=== PATIENT | male | born 1955 | race Caucasian/White ===

== ENCOUNTER 2023-11-04 08:27 | Inpatient (IN) | payer BC, MEDICARE ==
[2023-11-04 09:19] LABS: #Eosinphils 0.1 thou/uL (0.0-0.7); #Monocytes 0.5 thou/uL (0.11-0.59); #Neutrophils 5.6 thou/uL (1.40-6.50); %Basophils 0.3 % (0.0-1.0); %Eosinophils 1.4 % (0.0-10.0); %Monocytes 6.7 % (0.0-10.0); %Neutrophils 77.2 % (42.0-75.0); Hematocrit 34.5 % (42.0-52.0); Hemoglobin 12.1 g/dL (14.0-18.0); Mean Corpuscular HGB CONC 35.1 g/dL (32.0-36.0); Mean Corpuscular Hemoglobin 34.8 pg (27.0-31.0); Mean Corpuscular Volume 99.1 fl (78.0-98.0); Mean Platelet Volume 11.2 fL (7.4-10.4); RBC Distribution Width 12.6 % (11.5-14.5); Red Blood Cell (RBC) Count 3.48 mill/uL (4.70-6.10); White Blood Cell (WBC) Count 7.2 10x3/uL (4.8-10.8)
[2023-11-04 09:38] LABS: ALT (SGPT) 26 U/L (8-55); AST (SGOT) 22 U/L (5-34); Alkaline Phosphatase 102 U/L (40-110); Anion Gap 11 mmol/L (10-20); BUN (Urea Nitrogen) 21 mg/dL (8.4-25.7); Bilirubin, Total 0.9 mg/dL (0.2-1.2); Calc. Creatinine Clearance 0 mL/min (70-130); Calcium 8.9 mg/dL (7.8-10.44); Carbon Dioxide 25 mmol/L (23-31); Chloride 97 mmol/L (98-107); Estimated GFR 67; Globulin 2.4 g/dL (2.4-3.5); Glucose 187 mg/dL (80-115); Potassium 4.9 mmol/L (3.5-5.1); Protein, Total 6.4 g/dL (5.8-8.1); Sodium 128 mmol/L (136-145)
[2023-11-04 09:43] LABS: CellaVision Operator ID LAB.GE; Platelet Adequacy Comment Platelets Decreased; Platelet Count 118 10x3/uL (130-400)
[2023-11-04] MEDS ORDERED: Dexamethasone 10 MG/ML VIAL ONE (14:30)
[2023-11-04] MEDS ORDERED: Morphine 4 MG/ML VIAL ONE (14:31)
[2023-11-04] MEDS ORDERED: Acetaminophen 325 MG TAB PO PRN (14:49)
[2023-11-04 16:14] VITALS: BMI 31.5
[2023-11-04] MEDS: HYDROcodone/Acetaminophen 5/325 mg Tablet PO PRN (16:50)
[2023-11-04] MEDS ORDERED: hydrALAZINE 20 MG/ML VIAL SLOW IVP PRN (18:16)
[2023-11-04] MEDS ORDERED: Dextrose 5% in Water 1,000 ML IV PRN (18:20)
[2023-11-04] MEDS ORDERED: Dextrose 50% Abboject 50 ML SYRINGE SLOW IVP PRN (18:20)
[2023-11-04] MEDS ORDERED: Glucagon 1 MG/ML KIT IM PRN (18:20)
[2023-11-04] MEDS: Carvedilol 6.25 MG TAB PO SCH (20:01)
[2023-11-04] MEDS ORDERED: Melatonin 3 MG TAB PO PRN (22:26)
[2023-11-04] MEDS: traMADol HCl 50 MG TAB PO SCH (23:10)
[2023-11-05] MEDS: traMADol HCl 50 MG TAB PO SCH ×4 (05:13→22:50)
[2023-11-05] MEDS: Hydrochlorothiazide 25 MG TAB PO SCH (08:22)
[2023-11-05] MEDS: Lisinopril 20 MG TAB PO SCH (08:22)
[2023-11-05] MEDS: Aspirin Chewable 81 MG TAB PO SCH (08:22)
[2023-11-05] MEDS: Carvedilol 6.25 MG TAB PO SCH ×2 (08:22→21:09)
[2023-11-05 08:57] LABS: #Monocytes 0.4 thou/uL (0.11-0.59); #Neutrophils 6.3 thou/uL (1.40-6.50); %Basophils 0.1 % (0.0-1.0); %Lymphocytes 12.5 % (21.0-51.0); %Monocytes 5.3 % (0.0-10.0); %Neutrophils 81.7 % (42.0-75.0); Hemoglobin 12.6 g/dL (14.0-18.0); Mean Corpuscular Hemoglobin 34.7 pg (27.0-31.0); Mean Corpuscular Volume 99.2 fl (78.0-98.0); Mean Platelet Volume 11.6 fL (7.4-10.4); RBC Distribution Width 12.5 % (11.5-14.5); Red Blood Cell (RBC) Count 3.63 mill/uL (4.70-6.10); White Blood Cell (WBC) Count 7.7 10x3/uL (4.8-10.8)
[2023-11-05] MEDS ORDERED: Dexamethasone 10 MG/ML VIAL SLOW IVP SCH (09:00)
[2023-11-05 09:04] LABS: Anion Gap 15 mmol/L (10-20); BUN (Urea Nitrogen) 28 mg/dL (8.4-25.7); Calc. Creatinine Clearance 89 mL/min (70-130); Calcium 9.3 mg/dL (7.8-10.44); Carbon Dioxide 19 mmol/L (23-31); Chloride 99 mmol/L (98-107); Estimated GFR 63; Glucose 248 mg/dL (80-115); Potassium 4.8 mmol/L (3.5-5.1); Sodium 128 mmol/L (136-145)
[2023-11-05] MEDS: Dexamethasone 4 mg/ml Vial SLOW IVP SCH ×3 (09:47→21:09)
[2023-11-05 09:51] LABS: Platelet Count 119 10x3/uL (130-400)
[2023-11-05] MEDS ORDERED: Insulin Glargine 30 UNITS/0.3 ML VIAL SC SCH (12:16)
[2023-11-05] MEDS ORDERED: Sodium Chloride 0.9% 1,000 ML IV SCH (12:30)
[2023-11-05] MEDS: HumaLOG 300 UNITS/3 ML VIAL SC PRN ×2 (12:42→17:08)
[2023-11-05] MEDS: HumaLOG 300 UNITS/3 ML VIAL SC SCH (17:06)
[2023-11-05] MEDS: QUEtiapine 25 MG TAB PO SCH (21:09)
[2023-11-06] MEDS: Dexamethasone 4 mg/ml Vial SLOW IVP SCH ×4 (01:54→21:33)
[2023-11-06] MEDS: HumaLOG 300 UNITS/3 ML VIAL SC PRN ×3 (01:54→21:35)
[2023-11-06] MEDS: traMADol HCl 50 MG TAB PO SCH ×3 (05:21→18:07)
[2023-11-06] MEDS: Aspirin Chewable 81 MG TAB PO SCH (09:45)
[2023-11-06] MEDS: Hydrochlorothiazide 25 MG TAB PO SCH (09:45)
[2023-11-06] MEDS: Carvedilol 6.25 MG TAB PO SCH ×2 (09:45→21:33)
[2023-11-06] MEDS: Insulin Glargine 30 UNITS/0.3 ML VIAL SC SCH (09:46)
[2023-11-06] MEDS: Lisinopril 20 MG TAB PO SCH (09:46)
[2023-11-06] MEDS: HumaLOG 300 UNITS/3 ML VIAL SC SCH ×3 (09:47→18:07)
[2023-11-06] MEDS: HYDROcodone/Acetaminophen 5/325 mg Tablet PO PRN (09:54)
[2023-11-06 16:59] LABS: #Monocytes 0.5 thou/uL (0.11-0.59); %Basophils 0.1 % (0.0-1.0); %Lymphocytes 7.1 % (21.0-51.0); %Monocytes 4.8 % (0.0-10.0); %Neutrophils 87.5 % (42.0-75.0); Hematocrit 38.3 % (42.0-52.0); Hemoglobin 13.1 g/dL (14.0-18.0); Mean Corpuscular HGB CONC 34.2 g/dL (32.0-36.0); Mean Corpuscular Hemoglobin 34.7 pg (27.0-31.0); Mean Corpuscular Volume 101.3 fl (78.0-98.0); Mean Platelet Volume 11.2 fL (7.4-10.4); RBC Distribution Width 12.4 % (11.5-14.5); Red Blood Cell (RBC) Count 3.78 mill/uL (4.70-6.10); White Blood Cell (WBC) Count 10.3 10x3/uL (4.8-10.8)
[2023-11-06 17:00] LABS: Platelet Count 118 10x3/uL (130-400)
[2023-11-06 17:20] LABS: Anion Gap 16 mmol/L (10-20); BUN (Urea Nitrogen) 39 mg/dL (8.4-25.7); Calc. Creatinine Clearance 80 mL/min (70-130); Calcium 8.7 mg/dL (7.8-10.44); Carbon Dioxide 17 mmol/L (23-31); Chloride 96 mmol/L (98-107); Estimated GFR 56; Glucose 302 mg/dL (80-115); Potassium 4.4 mmol/L (3.5-5.1); Sodium 125 mmol/L (136-145)
[2023-11-06] MEDS ORDERED: Dexamethasone 4 mg/ml Vial ONE (21:30)
[2023-11-06] MEDS: QUEtiapine 25 MG TAB PO SCH (21:34)
[2023-11-07] MEDS: traMADol HCl 50 MG TAB PO SCH ×5 (00:38→22:58)
[2023-11-07] MEDS: Dexamethasone 4 mg/ml Vial SLOW IVP SCH ×4 (03:55→20:39)
[2023-11-07] MEDS: HumaLOG 300 UNITS/3 ML VIAL SC PRN ×2 (06:22→20:55)
[2023-11-07] MEDS: Carvedilol 6.25 MG TAB PO SCH ×2 (09:12→20:39)
[2023-11-07] MEDS: Lisinopril 20 MG TAB PO SCH (09:12)
[2023-11-07] MEDS: Insulin Glargine 30 UNITS/0.3 ML VIAL SC SCH (09:13)
[2023-11-07] MEDS: Hydrochlorothiazide 25 MG TAB PO SCH (09:13)
[2023-11-07] MEDS: Aspirin Chewable 81 MG TAB PO SCH (09:13)
[2023-11-07] MEDS: HumaLOG 300 UNITS/3 ML VIAL SC SCH ×3 (09:14→18:02)
[2023-11-07] MEDS ORDERED: Lorazepam 2 MG/ML VIAL SLOW IVP PRN (09:15)
[2023-11-07] MEDS: QUEtiapine 25 MG TAB PO SCH (20:38)
[2023-11-07] MEDS: HYDROcodone/Acetaminophen 5/325 mg Tablet PO PRN (20:39)
[2023-11-08] MEDS: Dexamethasone 4 mg/ml Vial SLOW IVP SCH (02:55)
[2023-11-08] MEDS: HumaLOG 300 UNITS/3 ML VIAL SC PRN ×3 (05:47→21:05)
[2023-11-08] MEDS: traMADol HCl 50 MG TAB PO SCH ×4 (05:48→23:01)
[2023-11-08 06:03] LABS: #Monocytes 0.3 thou/uL (0.11-0.59); #Neutrophils 6.8 thou/uL (1.40-6.50); %Lymphocytes 6.7 % (21.0-51.0); %Monocytes 3.7 % (0.0-10.0); %Neutrophils 88.9 % (42.0-75.0); Hematocrit 37.8 % (42.0-52.0); Hemoglobin 13.1 g/dL (14.0-18.0); Mean Corpuscular HGB CONC 34.7 g/dL (32.0-36.0); Mean Corpuscular Hemoglobin 33.9 pg (27.0-31.0); Mean Corpuscular Volume 97.7 fl (78.0-98.0); Mean Platelet Volume 11.7 fL (7.4-10.4); Platelet Count 122 10x3/uL (130-400); RBC Distribution Width 12.3 % (11.5-14.5); Red Blood Cell (RBC) Count 3.87 mill/uL (4.70-6.10); White Blood Cell (WBC) Count 7.6 10x3/uL (4.8-10.8)
[2023-11-08 06:28] LABS: Anion Gap 12 mmol/L (10-20); BUN (Urea Nitrogen) 40 mg/dL (8.4-25.7); Calc. Creatinine Clearance 99 mL/min (70-130); Calcium 8.6 mg/dL (7.8-10.44); Carbon Dioxide 24 mmol/L (23-31); Chloride 97 mmol/L (98-107); Estimated GFR 72; Glucose 318 mg/dL (80-115); Potassium 4.3 mmol/L (3.5-5.1); Sodium 129 mmol/L (136-145)
[2023-11-08] MEDS: Carvedilol 6.25 MG TAB PO SCH ×2 (08:11→20:49)
[2023-11-08] MEDS: Lisinopril 20 MG TAB PO SCH (08:12)
[2023-11-08] MEDS: HumaLOG 300 UNITS/3 ML VIAL SC SCH ×3 (08:12→18:23)
[2023-11-08] MEDS: Hydrochlorothiazide 25 MG TAB PO SCH (08:12)
[2023-11-08] MEDS ORDERED: Insulin Glargine 30 UNITS/0.3 ML VIAL SC SCH (09:00)
[2023-11-08] MEDS: HYDROcodone/Acetaminophen 5/325 mg Tablet PO PRN (20:49)
[2023-11-08] MEDS: QUEtiapine 25 MG TAB PO SCH (20:49)
[2023-11-08] MEDS ORDERED: Sodium Chloride 0.9% 500 ML IV SCH (21:45)
[2023-11-09] MEDS: HYDROcodone/Acetaminophen 5/325 mg Tablet PO PRN ×2 (01:37→21:44)
[2023-11-09 04:03] LABS: #Monocytes 0.9 thou/uL (0.11-0.59); #Neutrophils 12.5 thou/uL (1.40-6.50); %Basophils 0.1 % (0.0-1.0); %Eosinophils 0.1 % (0.0-10.0); %Lymphocytes 3.7 % (21.0-51.0); %Monocytes 6.3 % (0.0-10.0); %Neutrophils 89.4 % (42.0-75.0); Hematocrit 36.2 % (42.0-52.0); Hemoglobin 12.7 g/dL (14.0-18.0); Mean Corpuscular HGB CONC 35.1 g/dL (32.0-36.0); Mean Corpuscular Hemoglobin 35.1 pg (27.0-31.0); Mean Platelet Volume 11.1 fL (7.4-10.4); Platelet Count 104 10x3/uL (130-400); RBC Distribution Width 12.3 % (11.5-14.5); Red Blood Cell (RBC) Count 3.62 mill/uL (4.70-6.10)
[2023-11-09 04:47] LABS: Anion Gap 14 mmol/L (10-20); BUN (Urea Nitrogen) 52 mg/dL (8.4-25.7); Calc. Creatinine Clearance 58 mL/min (70-130); Calcium 8.2 mg/dL (7.8-10.44); Carbon Dioxide 22 mmol/L (23-31); Chloride 97 mmol/L (98-107); Estimated GFR 38; Glucose 195 mg/dL (80-115); Magnesium 1.9 mg/dL (1.6-2.6); Potassium 4.1 mmol/L (3.5-5.1); Sodium 129 mmol/L (136-145)
[2023-11-09] MEDS ORDERED: Sodium Chloride 0.9% 500 ML IV SCH (05:30)
[2023-11-09] MEDS ORDERED: Sodium Chloride 0.9% 1,000 ML IV SCH (05:30)
[2023-11-09] MEDS: traMADol HCl 50 MG TAB PO SCH ×3 (05:44→17:41)
[2023-11-09] MEDS: HumaLOG 300 UNITS/3 ML VIAL SC PRN (05:45)
[2023-11-09 06:56] LABS: Lactic Acid 1.8 mmol/L (0.5-2.2)
[2023-11-09] MEDS ORDERED: CEFAZOLIN 2 GM in Sodium Chloride 0.9% 100 ML IVPB SCH (07:30)
[2023-11-09 08:12] LABS: Anion Gap 13 mmol/L (10-20); BUN (Urea Nitrogen) 56 mg/dL (8.4-25.7); Calc. Creatinine Clearance 58 mL/min (70-130); Carbon Dioxide 21 mmol/L (23-31); Chloride 98 mmol/L (98-107); Estimated GFR 38; Glucose 217 mg/dL (80-115); Potassium 4.3 mmol/L (3.5-5.1); Sodium 128 mmol/L (136-145)
[2023-11-09] MEDS: HumaLOG 300 UNITS/3 ML VIAL SC SCH ×3 (09:08→17:42)
[2023-11-09] MEDS: Insulin Glargine 30 UNITS/0.3 ML VIAL SC SCH (09:08)
[2023-11-09] MEDS: Sodium Chloride 0.9% 1,000 ML IV SCH (12:20)
[2023-11-09 13:32] LABS: Bilirubin Negative (Negative); Blood, Urine Large (Negative); Glucose, Urine (Dipstick) Negative (Negative); Ketone, Urine Trace mg/dL (Negative); Leukocyte Moderate (Negative); Nitrite Negative (Negative); Protein, Urine (Dipstick) Negative (Neg-Trace); Specific Gravity, Urine 1.025 (1.005-1.030); Urobilinogen 0.2 mg/dL (Less than 2)
[2023-11-09 13:40] LABS: Clarity Clear (Clear)
[2023-11-09 13:41] LABS: Bacteria/HPF 1+ HPF (None Seen); CAUTI Indications for Culture Immunosuppressed; Squamous Epithelial 0-3 HPF (0-3); WBC/HPF Greater Than 50 HPF (0-3)
[2023-11-09 13:43] LABS: Urine Culture Reflex Yes Yes
[2023-11-09 14:19] LABS: Creatinine, Urine 184.59 mg/dL (63-166)
[2023-11-09] MEDS: CEFAZOLIN 2 GM in Sodium Chloride 0.9% 100 ML IVPB SCH (17:42)
[2023-11-09] MEDS: QUEtiapine 25 MG TAB PO SCH (21:44)
[2023-11-10] MEDS: traMADol HCl 50 MG TAB PO SCH ×4 (01:09→17:10)
[2023-11-10] MEDS: CEFAZOLIN 2 GM in Sodium Chloride 0.9% 100 ML IVPB SCH ×3 (02:26→17:12)
[2023-11-10] MEDS: Sodium Chloride 0.9% 1,000 ML IV SCH ×2 (06:20→21:13)
[2023-11-10] MEDS: HumaLOG 300 UNITS/3 ML VIAL SC PRN (06:22)
[2023-11-10 06:59] LABS: #Eosinphils 0.3 thou/uL (0.0-0.7); #Monocytes 0.7 thou/uL (0.11-0.59); #Neutrophils 8.7 thou/uL (1.40-6.50); %Basophils 0.1 % (0.0-1.0); %Eosinophils 2.5 % (0.0-10.0); %Monocytes 6.6 % (0.0-10.0); Hematocrit 33.8 % (42.0-52.0); Hemoglobin 11.7 g/dL (14.0-18.0); Mean Corpuscular HGB CONC 34.6 g/dL (32.0-36.0); Mean Corpuscular Hemoglobin 33.8 pg (27.0-31.0); Mean Corpuscular Volume 97.7 fl (78.0-98.0); Mean Platelet Volume 11.9 fL (7.4-10.4); Platelet Count 93 10x3/uL (130-400); RBC Distribution Width 12.6 % (11.5-14.5); Red Blood Cell (RBC) Count 3.46 mill/uL (4.70-6.10); White Blood Cell (WBC) Count 11.2 10x3/uL (4.8-10.8)
[2023-11-10 07:47] LABS: Anion Gap 11 mmol/L (10-20); BUN (Urea Nitrogen) 83 mg/dL (8.4-25.7); Calc. Creatinine Clearance 51 mL/min (70-130); Calcium 7.8 mg/dL (7.8-10.44); Carbon Dioxide 22 mmol/L (23-31); Chloride 96 mmol/L (98-107); Estimated GFR 33; Glucose 182 mg/dL (80-115); Potassium 3.9 mmol/L (3.5-5.1); Sodium 125 mmol/L (136-145)
[2023-11-10] MEDS: HumaLOG 300 UNITS/3 ML VIAL SC SCH ×3 (08:03→17:08)
[2023-11-10] MEDS: Insulin Glargine 30 UNITS/0.3 ML VIAL SC SCH (08:03)
[2023-11-10] MEDS: QUEtiapine 25 MG TAB PO SCH (21:03)
[2023-11-10] MEDS: HYDROcodone/Acetaminophen 5/325 mg Tablet PO PRN (21:03)
[2023-11-11] MEDS: traMADol HCl 50 MG TAB PO SCH ×5 (00:25→23:50)
[2023-11-11] MEDS: CEFAZOLIN 2 GM in Sodium Chloride 0.9% 100 ML IVPB SCH ×3 (02:32→17:49)
[2023-11-11 05:13] LABS: #Eosinphils 0.2 thou/uL (0.0-0.7); #Monocytes 0.5 thou/uL (0.11-0.59); %Basophils 0.1 % (0.0-1.0); %Eosinophils 3.1 % (0.0-10.0); %Lymphocytes 9.5 % (21.0-51.0); %Monocytes 6.1 % (0.0-10.0); %Neutrophils 80.7 % (42.0-75.0); Hematocrit 33.4 % (42.0-52.0); Hemoglobin 11.6 g/dL (14.0-18.0); Mean Corpuscular HGB CONC 34.7 g/dL (32.0-36.0); Mean Corpuscular Hemoglobin 33.9 pg (27.0-31.0); Mean Corpuscular Volume 97.7 fl (78.0-98.0); Mean Platelet Volume 11.8 fL (7.4-10.4); RBC Distribution Width 12.7 % (11.5-14.5); Red Blood Cell (RBC) Count 3.42 mill/uL (4.70-6.10); White Blood Cell (WBC) Count 7.5 10x3/uL (4.8-10.8)
[2023-11-11 05:39] LABS: Anion Gap 12 mmol/L (10-20); BUN (Urea Nitrogen) 77 mg/dL (8.4-25.7); Calc. Creatinine Clearance 67 mL/min (70-130); Calcium 7.9 mg/dL (7.8-10.44); Carbon Dioxide 20 mmol/L (23-31); Chloride 99 mmol/L (98-107); Estimated GFR 45; Glucose 202 mg/dL (80-115); Sodium 127 mmol/L (136-145)
[2023-11-11 06:09] LABS: Platelet Count 89 10x3/uL (130-400)
[2023-11-11] MEDS: HumaLOG 300 UNITS/3 ML VIAL SC SCH ×3 (10:20→17:51)
[2023-11-11] MEDS: Insulin Glargine 30 UNITS/0.3 ML VIAL SC SCH (10:21)
[2023-11-11] MEDS: QUEtiapine 25 MG TAB PO SCH (21:37)
[2023-11-11] MEDS: HumaLOG 300 UNITS/3 ML VIAL SC PRN (21:38)
[2023-11-11] MEDS: Sodium Chloride 0.9% 1,000 ML IV SCH (21:42)
[2023-11-12] MEDS: CEFAZOLIN 2 GM in Sodium Chloride 0.9% 100 ML IVPB SCH ×3 (01:17→18:20)
[2023-11-12] MEDS: traMADol HCl 50 MG TAB PO SCH ×4 (05:22→23:20)
[2023-11-12 08:00] LABS: #Eosinphils 0.2 thou/uL (0.0-0.7); #Monocytes 0.5 thou/uL (0.11-0.59); #Neutrophils 3.2 thou/uL (1.40-6.50); %Basophils 0.2 % (0.0-1.0); %Eosinophils 3.8 % (0.0-10.0); %Lymphocytes 17.1 % (21.0-51.0); %Monocytes 10.3 % (0.0-10.0); %Neutrophils 67.1 % (42.0-75.0); Hematocrit 34.4 % (42.0-52.0); Mean Corpuscular HGB CONC 34.9 g/dL (32.0-36.0); Mean Corpuscular Hemoglobin 34.5 pg (27.0-31.0); Mean Corpuscular Volume 98.9 fl (78.0-98.0); Mean Platelet Volume 11.3 fL (7.4-10.4); Platelet Count 93 10x3/uL (130-400); Red Blood Cell (RBC) Count 3.48 mill/uL (4.70-6.10); White Blood Cell (WBC) Count 4.8 10x3/uL (4.8-10.8)
[2023-11-12 08:26] LABS: Anion Gap 10 mmol/L (10-20); BUN (Urea Nitrogen) 46 mg/dL (8.4-25.7); Calc. Creatinine Clearance 118 mL/min (70-130); Calcium 8.1 mg/dL (7.8-10.44); Carbon Dioxide 21 mmol/L (23-31); Chloride 103 mmol/L (98-107); Estimated GFR 89; Glucose 142 mg/dL (80-115); Potassium 4.4 mmol/L (3.5-5.1); Sodium 130 mmol/L (136-145)
[2023-11-12] MEDS: Insulin Glargine 30 UNITS/0.3 ML VIAL SC SCH (09:25)
[2023-11-12] MEDS: HumaLOG 300 UNITS/3 ML VIAL SC SCH ×3 (09:29→18:17)
[2023-11-12] MEDS: QUEtiapine 25 MG TAB PO SCH (20:31)
[2023-11-13] MEDS: CEFAZOLIN 2 GM in Sodium Chloride 0.9% 100 ML IVPB SCH ×3 (01:41→17:47)
[2023-11-13] MEDS: traMADol HCl 50 MG TAB PO SCH ×3 (05:51→17:45)
[2023-11-13] MEDS: HumaLOG 300 UNITS/3 ML VIAL SC PRN ×2 (05:56→14:00)
[2023-11-13] MEDS: Insulin Glargine 30 UNITS/0.3 ML VIAL SC SCH (09:24)
[2023-11-13] MEDS: HumaLOG 300 UNITS/3 ML VIAL SC SCH ×3 (09:25→17:45)
[2023-11-13 09:45] LABS: #Eosinphils 0.2 thou/uL (0.0-0.7); #Monocytes 0.7 thou/uL (0.11-0.59); #Neutrophils 3.4 thou/uL (1.40-6.50); %Basophils 0.2 % (0.0-1.0); %Monocytes 12.7 % (0.0-10.0); %Neutrophils 64.2 % (42.0-75.0); Hematocrit 35.4 % (42.0-52.0); Hemoglobin 12.1 g/dL (14.0-18.0); Mean Corpuscular HGB CONC 34.2 g/dL (32.0-36.0); Mean Corpuscular Hemoglobin 33.6 pg (27.0-31.0); Mean Corpuscular Volume 98.3 fl (78.0-98.0); Mean Platelet Volume 11.1 fL (7.4-10.4); Platelet Count 113 10x3/uL (130-400); RBC Distribution Width 12.8 % (11.5-14.5); White Blood Cell (WBC) Count 5.3 10x3/uL (4.8-10.8)
[2023-11-13 10:05] LABS: Anion Gap 11 mmol/L (10-20); BUN (Urea Nitrogen) 29 mg/dL (8.4-25.7); Calc. Creatinine Clearance 126 mL/min (70-130); Calcium 8.1 mg/dL (7.8-10.44); Carbon Dioxide 22 mmol/L (23-31); Chloride 99 mmol/L (98-107); Estimated GFR 93; Glucose 228 mg/dL (80-115); Potassium 4.7 mmol/L (3.5-5.1); Sodium 127 mmol/L (136-145)
[2023-11-13] MEDS: HYDROcodone/Acetaminophen 5/325 mg Tablet PO PRN (14:03)
[2023-11-13] MEDS: QUEtiapine 25 MG TAB PO SCH (20:46)
[2023-11-14] MEDS: traMADol HCl 50 MG TAB PO SCH ×5 (00:11→23:34)
[2023-11-14] MEDS: CEFAZOLIN 2 GM in Sodium Chloride 0.9% 100 ML IVPB SCH ×3 (02:14→16:50)
[2023-11-14 06:13] LABS: #Eosinphils 0.2 thou/uL (0.0-0.7); #Monocytes 0.7 thou/uL (0.11-0.59); #Neutrophils 3.6 thou/uL (1.40-6.50); %Basophils 0.4 % (0.0-1.0); %Eosinophils 3.2 % (0.0-10.0); %Monocytes 11.9 % (0.0-10.0); %Neutrophils 65.6 % (42.0-75.0); Hematocrit 33.5 % (42.0-52.0); Hemoglobin 11.9 g/dL (14.0-18.0); Mean Corpuscular HGB CONC 35.5 g/dL (32.0-36.0); Mean Corpuscular Hemoglobin 34.4 pg (27.0-31.0); Mean Corpuscular Volume 96.8 fl (78.0-98.0); Mean Platelet Volume 10.8 fL (7.4-10.4); Platelet Count 121 10x3/uL (130-400); RBC Distribution Width 12.6 % (11.5-14.5); Red Blood Cell (RBC) Count 3.46 mill/uL (4.70-6.10); White Blood Cell (WBC) Count 5.6 10x3/uL (4.8-10.8)
[2023-11-14 06:43] LABS: Anion Gap 12 mmol/L (10-20); BUN (Urea Nitrogen) 24 mg/dL (8.4-25.7); Calc. Creatinine Clearance 131 mL/min (70-130); Carbon Dioxide 24 mmol/L (23-31); Chloride 99 mmol/L (98-107); Estimated GFR 94; Glucose 206 mg/dL (80-115); Potassium 4.5 mmol/L (3.5-5.1); Sodium 130 mmol/L (136-145)
[2023-11-14] MEDS: Insulin Glargine 30 UNITS/0.3 ML VIAL SC SCH (08:29)
[2023-11-14] MEDS: HumaLOG 300 UNITS/3 ML VIAL SC SCH ×3 (08:29→18:45)
[2023-11-14] MEDS ORDERED: Thrombin 5000 UNITS/5 ML VIAL ONE (12:18)
[2023-11-14] MEDS ORDERED: Vancomycin 1 GM VIAL ONE ×2 (12:18→13:07)
[2023-11-14] MEDS ORDERED: fentaNYL 50 mcg/mL 1 mL Vial ONE ×3 (12:29→15:38)
[2023-11-14] MEDS ORDERED: PROPOFOL 200 MG/20 ML VIAL ONE (12:38)
[2023-11-14] MEDS ORDERED: Ondansetron PF 4 MG/2 ML Vial ONE (12:38)
[2023-11-14] MEDS ORDERED: Dexamethasone 20 MG/5 ML VIAL ONE (12:38)
[2023-11-14] MEDS ORDERED: Rocuronium Bromide 10 MG/ML (10ML VIAL) ONE (12:38)
[2023-11-14] MEDS ORDERED: Lidocaine 1% PF 5 ML VIAL ONE (12:38)
[2023-11-14] MEDS ORDERED: Bacitracin Zinc Ointment 30 gm TUBE ONE (12:45)
[2023-11-14] MEDS ORDERED: PHENYLEPHRINE-NS 100 MCG/ML 10 ML SYRINGE ONE (12:45)
[2023-11-14] MEDS ORDERED: Phenylephrine 40 MG/NS 250 ML 250 ML ONE (12:47)
[2023-11-14] MEDS ORDERED: CEFAZOLIN 1 GM VIAL ONE (12:57)
[2023-11-14] MEDS ORDERED: ePHEDrine Sulfate 50 MG/10 ML VIAL ONE (12:57)
[2023-11-14] MEDS ORDERED: Vecuronium 10 MG VIAL ONE (12:57)
[2023-11-14] MEDS ORDERED: SUGAMMADEX SODIUM 200 MG/2 ML VIAL ONE ×2 (14:29)
[2023-11-14] MEDS ORDERED: HYDROcodone/Acetaminophen 10/325 mg Tablet PO PRN (15:07)
[2023-11-14] MEDS ORDERED: HYDROmorphone 2 MG/ML VIAL SLOW IVP PRN (15:19)
[2023-11-14] MEDS ORDERED: Promethazine HCl 25 MG/ML VIAL IM PRN (15:19)
[2023-11-14] MEDS ORDERED: Ondansetron HCl/PF 4 MG/2 ML Vial IVP PRN (15:19)
[2023-11-14] MEDS: Morphine 4 MG/ML VIAL SLOW IVP PRN (16:49)
[2023-11-14] MEDS: tiZANidine HCl 4 MG TAB PO SCH ×2 (16:50→23:37)
[2023-11-14] MEDS: Carvedilol 3.125 MG TAB PO SCH (16:50)
[2023-11-14] MEDS: HYDROcodone/Acetaminophen 10/325 mg Tablet PO PRN (20:15)
[2023-11-14] MEDS: QUEtiapine 25 MG TAB PO SCH (20:16)
[2023-11-14] MEDS: HumaLOG 300 UNITS/3 ML VIAL SC PRN (23:46)
[2023-11-15] MEDS: CEFAZOLIN 2 GM in Sodium Chloride 0.9% 100 ML IVPB SCH ×3 (02:11→17:41)
[2023-11-15] MEDS: HYDROcodone/Acetaminophen 10/325 mg Tablet PO PRN ×4 (02:11→18:55)
[2023-11-15 04:51] LABS: #Monocytes 0.9 thou/uL (0.11-0.59); #Neutrophils 8.4 thou/uL (1.40-6.50); %Basophils 0.2 % (0.0-1.0); %Eosinophils 0.2 % (0.0-10.0); %Lymphocytes 9.8 % (21.0-51.0); %Monocytes 8.5 % (0.0-10.0); %Neutrophils 80.6 % (42.0-75.0); Hematocrit 33.7 % (42.0-52.0); Hemoglobin 11.6 g/dL (14.0-18.0); Mean Corpuscular HGB CONC 34.4 g/dL (32.0-36.0); Mean Corpuscular Hemoglobin 34.1 pg (27.0-31.0); Mean Corpuscular Volume 99.1 fl (78.0-98.0); Platelet Count 130 10x3/uL (130-400); RBC Distribution Width 12.5 % (11.5-14.5); White Blood Cell (WBC) Count 10.4 10x3/uL (4.8-10.8)
[2023-11-15 05:13] LABS: Anion Gap 11 mmol/L (10-20); BUN (Urea Nitrogen) 32 mg/dL (8.4-25.7); Calc. Creatinine Clearance 129 mL/min (70-130); Calcium 8.2 mg/dL (7.8-10.44); Carbon Dioxide 24 mmol/L (23-31); Chloride 98 mmol/L (98-107); Estimated GFR 94; Glucose 191 mg/dL (80-115); Potassium 5.3 mmol/L (3.5-5.1); Sodium 128 mmol/L (136-145)
[2023-11-15] MEDS: traMADol HCl 50 MG TAB PO SCH ×3 (06:36→17:43)
[2023-11-15] MEDS: tiZANidine HCl 4 MG TAB PO SCH ×3 (06:37→17:44)
[2023-11-15] MEDS: HumaLOG 300 UNITS/3 ML VIAL SC PRN (06:43)
[2023-11-15] MEDS: Insulin Glargine 30 UNITS/0.3 ML VIAL SC SCH (09:26)
[2023-11-15] MEDS: HumaLOG 300 UNITS/3 ML VIAL SC SCH ×3 (09:28→18:02)
[2023-11-15] MEDS: Carvedilol 3.125 MG TAB PO SCH ×2 (09:29→17:44)
[2023-11-15] MEDS ORDERED: Albuterol 2.5 MG (3 mL) NEB NEB SCH (14:15)
[2023-11-15] MEDS ORDERED: Sodium Polystyrene Sulfonate 15 GM (60 mL) BOT PO SCH (14:15)
[2023-11-15] MEDS ORDERED: Insulin Regular 300 UNITS/3 ML VIAL IVP SCH (14:15)
[2023-11-15] MEDS ORDERED: Dextrose 50% Abboject 50 ML SYRINGE SLOW IVP SCH (14:15)
[2023-11-15] MEDS: Morphine 4 MG/ML VIAL SLOW IVP PRN ×2 (16:44→20:49)
[2023-11-15] MEDS: QUEtiapine 25 MG TAB PO SCH (20:13)
[2023-11-16] MEDS: traMADol HCl 50 MG TAB PO SCH ×4 (00:08→16:25)
[2023-11-16] MEDS: tiZANidine HCl 4 MG TAB PO SCH ×4 (00:08→16:25)
[2023-11-16] MEDS: CEFAZOLIN 2 GM in Sodium Chloride 0.9% 100 ML IVPB SCH ×3 (01:40→16:25)
[2023-11-16] MEDS: Morphine 4 MG/ML VIAL SLOW IVP PRN ×2 (02:50→08:14)
[2023-11-16 04:30] LABS: #Eosinphils 0.1 thou/uL (0.0-0.7); #Monocytes 0.7 thou/uL (0.11-0.59); #Neutrophils 6.9 thou/uL (1.40-6.50); %Basophils 0.1 % (0.0-1.0); %Lymphocytes 10.6 % (21.0-51.0); %Monocytes 8.4 % (0.0-10.0); %Neutrophils 79.1 % (42.0-75.0); Hematocrit 29.1 % (42.0-52.0); Hemoglobin 10.4 g/dL (14.0-18.0); Mean Corpuscular HGB CONC 35.7 g/dL (32.0-36.0); Mean Corpuscular Hemoglobin 34.8 pg (27.0-31.0); Mean Corpuscular Volume 97.3 fl (78.0-98.0); Mean Platelet Volume 10.7 fL (7.4-10.4); Platelet Count 132 10x3/uL (130-400); RBC Distribution Width 12.7 % (11.5-14.5); Red Blood Cell (RBC) Count 2.99 mill/uL (4.70-6.10); White Blood Cell (WBC) Count 8.8 10x3/uL (4.8-10.8)
[2023-11-16 04:41] LABS: Anion Gap 12 mmol/L (10-20); BUN (Urea Nitrogen) 34 mg/dL (8.4-25.7); Calc. Creatinine Clearance 128 mL/min (70-130); Calcium 7.8 mg/dL (7.8-10.44); Carbon Dioxide 23 mmol/L (23-31); Chloride 92 mmol/L (98-107); Estimated GFR 94; Glucose 114 mg/dL (80-115); Potassium 4.4 mmol/L (3.5-5.1); Sodium 123 mmol/L (136-145)
[2023-11-16] MEDS ORDERED: oxyCODONE/Acetaminophen 5 mg/325 mg Tablet PO PRN (05:49)
[2023-11-16] MEDS: HumaLOG 300 UNITS/3 ML VIAL SC SCH ×3 (08:19→17:36)
[2023-11-16] MEDS: Carvedilol 3.125 MG TAB PO SCH ×2 (08:20→16:25)
[2023-11-16] MEDS: Insulin Glargine 30 UNITS/0.3 ML VIAL SC SCH (08:31)
[2023-11-16] MEDS: oxyCODONE/Acetaminophen 5 mg/325 mg Tablet PO PRN ×2 (10:33→17:44)
[2023-11-16 20:43] VITALS: TEMP 98.2
[2023-11-16 21:21] VITALS: BP 105/67
== END 2023-11-16 20:44 | DRG 472 ==
LOC: ERS 08:27 → SUATTDRO 08:27 → T4-B 16:12 → OBSVTOIN 11-05 12:17
PROVIDERS: ADMIT Internal Medicine; ATTEND Internal Medicine
PROC: 00NW0ZZ Release Cervical Spinal Cord, Open Approach (ICD-10-PCS; principal; 2023-11-14)
PROC: 0RG2071 Fusion of 2 or more Cervical Vertebral Joints with Autologous Tissue Substitute, Posterior Approach, Posterior Column, Open Approach (ICD-10-PCS; 2023-11-14)
PROC: 0RG4071 Fusion of Cervicothoracic Vertebral Joint with Autologous Tissue Substitute, Posterior Approach, Posterior Column, Open Approach (ICD-10-PCS; 2023-11-14)
DX: M48.02 Spinal stenosis, cervical region (principal); E87.1 Hypo-osmolality and hyponatremia; N39.0 Urinary tract infection, site not specified; N17.9 Acute kidney failure, unspecified; N18.4 Chronic kidney disease, stage 4 (severe); E11.65 Type 2 diabetes mellitus with hyperglycemia; R32 Unspecified urinary incontinence; E78.5 Hyperlipidemia, unspecified; Z96.643 Presence of artificial hip joint, bilateral; Z79.82 Long term (current) use of aspirin; Z79.899 Other long term (current) drug therapy; Z88.8 Allergy status to other drugs, medicaments and biological substances; E87.5 Hyperkalemia; I12.9 Hypertensive chronic kidney disease with stage 1 through stage 4 chronic kidney disease, or unspecified chronic kidney disease; G47.00 Insomnia, unspecified; Z95.0 Presence of cardiac pacemaker; N31.9 Neuromuscular dysfunction of bladder, unspecified; E11.22 Type 2 diabetes mellitus with diabetic chronic kidney disease; Z79.4 Long term (current) use of insulin; I95.9 Hypotension, unspecified; D63.1 Anemia in chronic kidney disease
CPT/HCPCS: 36415; 36416; 71046; 71250; 72128; 72131; 72156; 72157; 72158; 76770; 80048; 80053; 81001; 82533; 82570; 83605; 83735; 84156; 85025; 86140; 87040; 87077; 87086; 87149; 87186; 93005; 93010; 94640; C1713; C1776; J0690; J1100; J1815; J2060; J2270; J2405; J2704; J3010; J3370; J3490; J7030; J7050; J7611; J7999